=== PATIENT | female | born 1995 | race Caucasian/White ===

== ENCOUNTER → 2016-12-07 | Outpatient (CLI) | payer MEDICAID ==
--- NOTE | 2016-12-07 15:28 | US ---
Examination: Greater than 14 weeks transabdominal ultrasound with color Doppler and M-mode evaluatio n. HISTORY: screening FINDINGS: LMP is 07/20/2016 EVALUATION: Posterior placenta with a breech lie and grade 1. Visually amniotic fluid is withi n normal limits. Three-vessel cord is seen. Ventricles are within normal limits. Nuchal fold thickness is 3 mm. Four chamber heart is noted. Heart rate is 142 beats per minute. BIOMETRY AND GESTATIONAL AGE: Biparietal diameter 6.7 cm. The abdominal circumference measures 14.6 cm. The femoral length is 2.9 cm with head circumference of 17.3 cm. Gestational age is 19 weeks and 5 days. The expected date of delivery is approximately 04/28/2017. Fetus weight is 298 grams. Overall the fetus is within the 21st percentile. Other detail anatomy summarized into PACs sheet after the images. No anatomical anomalies. IMPRESSION: Single active IU with breech fetus. Posterior placenta with grade 1, no placenta previa. N o anomalies are seen. Amniotic fluid appears within normal limits.
== END ==
LOC: MW.US 10:58
PROVIDERS: ATTEND Obstetrics & Gynecology
DX: Z36 Encounter for antenatal screening of mother (principal); Z3A.19 19 weeks gestation of pregnancy
CPT/HCPCS: 76805; 76805-26

== ENCOUNTER → 2016-12-24 | Outpatient (CLI) | payer MEDICAID | LOC: MW.CHOBGYN 11:56 | PROVIDERS: ATTEND Obstetrics & Gynecology | DX: Z34.90 Encounter for supervision of normal pregnancy, unspecified, unspecified trimester (principal) | CPT/HCPCS: 81003 ==

== ENCOUNTER 2017-04-21 05:18 | Inpatient (IN) | payer BC, MEDICAID ==
[2017-04-21] MEDS ORDERED: ceFAZolin 2 GM in Premix Bag 1 BAG IV ONE (06:23)
[2017-04-21] MEDS ORDERED: Sodium Chloride 0.9% 10 ML Syringe FLUSH PRN (06:23)
[2017-04-21] MEDS ORDERED: Sodium Chloride 0.9% 2.5 ML Syringe FLUSH PRN (06:23)
[2017-04-21] MEDS ORDERED: Citric Acid/Sodium Citrate Solution 30 ML Cup PO SCH (06:30)
[2017-04-21] MEDS: Lactated Ringers 1,000 ML IV SCH ×3 (06:39→07:44)
--- NOTE | 2017-04-21 06:39 | PCM.LDHP ---
L&D History of Present Illness - General Date of Service: 04/21/17 Admit Problem/Dx: Patient Status Order with Admit Dx/Problem 04/21/17 06:23 Patient Status [ADT] Routine Admission Diagnosis/Problem Admission Diagnosis/Problem Source of Information: Patient History Limitations: Reports: No Limitations - History of Present Illness Improves with: Reports: None Worsens with: Reports: None Associated Symptoms: Reports: N - Related Data Allergies/Adverse Reactions: Allergies Allergy/AdvReac Type Severity Reaction Status Date / Time aspirin Allergy due to Verified 04/14/17 10:27 bleeding disorder NSAIDS (Non-Steroidal Allergy due to Verified 04/14/17 10:27 Anti-Inflamma bleeding disorder Home Medications: Home Meds Pnv No.95/Ferrous Fum/Folic AC [ Multivitamin Tablet] 1 tab PO DAILY [History] QUEtiapine [SEROquel] 100 mg PO BEDTIME 04/14/17 [History] lamoTRIgine [Lamictal] 200 mg PO DAILY 04/14/17 [History] Past Medical History Gastrointestinal History: Reports: Other (See Below) Other Gastrointestinal History: occasional heartburn with Genitourinary History: Reports: None DIORAMIST History: Reports: Musculoskeletal History: Reports: None Neurological History: Reports: Seizure Other Neuro History: seizure disorder, on lamictal Psychiatric History: Reports: Anxiety, Depression Hematologic History: Reports: Other (See Below) Other Hematologic History: bleeding disorder, HHT (hereditary hemorrhagic telangiectasia) - Past Surgical History Head Surgeries/Procedures: Reports: None Female Surgical History: Reports: Section Musculoskeletal Surgical History: Reports: Other (See Below) Other Musculoskeletal Surgeries/Procedures:: hx of rt hand surgery Social & Family History - Family History HEENT: Reports: Epistaxis Cardiac: Reports: Hypertension Musculoskeletal: Reports: Arthritis Neurological: Reports: CVA, Neuropathy, Diabetic, Speech Problems, TIA Psychiatric: Reports: ADHD, Anxiety, Depression, Panic Attack Endocrine/Metabolic: Reports: Diabetes, type II Other Hematologic Family History: HHT - Tobacco Use Smoking Status *Q: Current Every Day Smoker Years of Tobacco use: 8 Packs/Tins Daily: 0.5 - Recreational Drug Use Drug Use in Last 12 Months: No H&P Review of Systems - Review of Systems: Review Of Systems: See Below General: Reports: No Symptoms HEENT: Reports: No Symptoms Pulmonary: Reports: No Symptoms Cardiovascular: Reports: No Symptoms Gastrointestinal: Reports: No Symptoms Genitourinary: Reports: No Symptoms Musculoskeletal: Reports: No Symptoms Skin: Reports: No Symptoms Psychiatric: Reports: No Symptoms Neurological: Reports: No Symptoms Hematologic/Lymphatic: Reports: No Symptoms Immunologic: Reports: No Symptoms L&D Exam - Exam Exam: See Below - Vital Signs Weight: 72.121 kg - OB Specific Fundal Height In cm: 37 Contraction Intensity: Mild Movement: Active Heart Tones: Present Presentation: Vertex - Ferguson Score Ferguson Score Cervix Position: Posterior Ferguson Score Consistency: Firm Ferguson Score Effacement: 0-30% Ferguson Score Dilation: Closed Ferguson Score 's Station: -3 Ferguson Score Total: 0 - Exam General: Alert, Oriented HEENT: PERRLA, Conjunctiva Clear, EACs Clear, EOMI, Hearing Intact, Mucosa Moist & [place], Nares Patent, Normal Nasal Septum, Posterior Pharynx Clear, TMs Clear Neck: Supple, Trachea Midline Lungs: Clear to Auscultation, Normal Respiratory Effort Cardiovascular: Regular Rate, Regular Rhythm GI/Abdominal Exam: Normal Bowel Sounds, Soft, Non-Tender, No Organomegaly, No Distention, No Abnormal Bruit, No Mass, Pelvis Stable Rectal Exam: Normal Exam, Normal Rectal Tone Genitourinary: Normal external exam, Normal bimanual exam, Normal speculum exam Back Exam: Normal Inspection, Full Range of Motion Extremities: Normal Inspection, Normal Range of Motion, Non-Tender, No Pedal Edema, Normal Capillary Refill Skin: Warm, Dry, Intact Neurological: Cranial Nerves Intact, Reflexes Equal Bilateral Psychiatric: Alert, Normal Affect, Normal Mood Problem List Initiated/Reviewed/Updated: Yes Orders Last 24hrs: Active Orders 24 hr Category Date Time Status Patient Status [ADT] Routine ADT 04/21/17 06:23 Active Non Stress Test [RC] PER UNIT ROUTINE Care 04/21/17 06:23 Active Notify Provider Vital Signs [RC] PRN Care 04/21/17 06:23 Active Procedure Site Prep Instruct [RC] ASDIRECTED Care 04/21/17 06:23 Active Up ad Agata [RC] ASDIRECTED Care 04/21/17 06:23 Active Verify Patient Consent Obtain [RC] ASDIRECTED Care 04/21/17 06:23 Active Vital Signs [RC] PER UNIT ROUTINE Care 04/21/17 06:23 Active CBC W/O DIFF,HEMOGRAM [HEME] Routine Lab 04/21/17 06:23 Ordered TYPE AND SCREEN [BBK] Routine Lab 04/21/17 06:23 Ordered Citric Acid/Sodium Citrate [Bicitra Solution] Med 04/21/17 06:30 Active 30 ml PO .ONCE Lactated Ringers [Ringers, Lactated] 1,000 ml Med 04/21/17 06:30 Active IV .BOLUS Sodium Chloride 0.9% [Saline Flush] Med 04/21/17 06:23 Active 10 ml FLUSH ASDIRECTED PRN Sodium Chloride 0.9% [Saline Flush] Med 04/21/17 06:23 Active 2.5 ml FLUSH ASDIRECTED PRN ceFAZolin [Ancef] 2 gm Med 04/21/17 06:23 Active Premix Bag 1 bag IV ONETIME Peripheral IV Insertion Adult [OM.PC] Routine Oth 04/21/17 06:23 Ordered Schedule Procedure [COMM] Per Unit Routine Oth 04/21/17 06:23 Ordered Resuscitation Status Routine Resus Stat 04/21/17 06:23 Ordered Medication Orders Citric Acid/Sodium Citrate (Bicitra Solution) 30 ml PO .ONCE LYN Cefazolin Sodium/Dextrose 2 gm (/ Premix) 50 mls @ 100 mls/hr IV ONETIME ONE Stop: 04/21/17 06:52 Lactated Ringer's (Ringers, Lactated) 1,000 mls @ 500 mls/hr IV .BOLUS LYN Sodium Chloride (Saline Flush) 10 ml FLUSH ASDIRECTED PRN PRN Reason: Keep Vein Open Sodium Chloride (Saline Flush) 2.5 ml FLUSH ASDIRECTED PRN PRN Reason: Keep Vein Open Assessment/Plan Comment:: Term admitted for elective repeat C/section
[2017-04-21] MEDS ORDERED: Octyl 2-Cyanoacrylate 1 Tube ONE (07:20)
[2017-04-21] MEDS ORDERED: Morphine PF 10 MG/10 ML SDV ONE (07:33)
[2017-04-21] MEDS ORDERED: Oxytocin/Lactated Ringers 30 UNIT/500 ML BAG ONE ×2 (07:35→09:14)
[2017-04-21] MEDS ORDERED: Propofol 200 MG/20 ML SDV ONE (07:49)
--- NOTE | 2017-04-21 07:55 | PCM.PREANE ---
Preanesthetic Assessment - Procedure Proposed Procedure: Repeat - Anesthesia/Transfusion/Family Hx Anesthesia History: Prior Anesthesia Without Reaction Family History of Anesthesia Reaction: No Transfusion History: No Prior Transfusion(s) Additional History: Hereditary bleeding disorder (telangiectasia) - Review of Systems General: No Symptoms Pulmonary: No Symptoms, Other (current everyday smoker) Cardiovascular: No Symptoms Gastrointestinal: Other (GERD) Neurological: Seizure (Hx with daily lamictal medication ) - Physical Assessment NPO Status Date: 04/20/17 NPO Status Time: 23:00 Height: 5 ft 1 in Weight: 170 lb ASA Class: 3 Mental Status: Alert & Oriented x3 Airway Class: Mallampati = 1 Dentition: Reports: Normal Dentition Thyro-Mental Finger Breadths: 3 Mouth Opening Finger Breadths: 3 ROM/Head Extension: Full Lungs: Normal Respiratory Effort Cardiovascular: Regular Rate, Regular Rhythm - Lab Values: Laboratory Last Values WBC 11.97 K/uL (4.0-11.0) H 04/21/17 06:39 RBC 4.04 M/uL (4.30-5.90) L 04/21/17 06:39 Hgb 13.4 g/dL (12.0-16.0) 04/21/17 06:39 Hct 38.2 % (36.0-46.0) 04/21/17 06:39 MCV 94.6 fL (80.0-98.0) 04/21/17 06:39 MCH 33.2 pg (27.0-32.0) H 04/21/17 06:39 MCHC 35.1 g/dL (31.0-37.0) 04/21/17 06:39 RDW Std Deviation 52.2 fl (28.0-62.0) 04/21/17 06:39 RDW Coeff of Twyla 15 % (11.0-15.0) 04/21/17 06:39 Plt Count 237 K/uL (150-400) 04/21/17 06:39 MPV 9.50 fL (7.40-12.00) 04/21/17 06:39 Nucleated RBC % 0.0 /100WBC 04/21/17 06:39 Nucleated RBCs # 0 K/uL 04/21/17 06:39 Blood Type O NEGATIVE 04/21/17 06:39 Antibody Screen NEGATIVE 04/21/17 06:39 - Allergies Allergies/Adverse Reactions: Allergies Allergy/AdvReac Type Severity Reaction Status Date / Time aspirin Allergy due to Verified 04/14/17 10:27 bleeding disorder NSAIDS (Non-Steroidal Allergy due to Verified 04/14/17 10:27 Anti-Inflamma bleeding disorder - Blood Blood Available: No - Anesthesia Plan Pre-Op Medication Ordered: None - Acknowledgements Anesthesia Type Planned: Spinal Pt an Appropriate Candidate for the Planned Anesthesia: Yes Alternatives and Risks of Anesthesia Discussed w Pt/Guardian: Yes Pt/Guardian Understands and Agrees with Anesthesia Plan: Yes PreAnesthesia Questionnaire Gastrointestinal History: Reports: Other (See Below) Other Gastrointestinal History: occasional heartburn with Genitourinary History: Reports: None [employer] 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: Musculoskeletal History: Reports: None Neurological History: Reports: Seizure Other Neuro History: seizure disorder, on lamictal Psychiatric History: Reports: Anxiety, Depression Hematologic History: Reports: Other (See Below) Other Hematologic History: bleeding disorder, HHT (hereditary hemorrhagic telangiectasia) - Past Surgical History Head Surgeries/Procedures: Reports: None Female Surgical History: Reports: Section Musculoskeletal Surgical History: Reports: Other (See Below) Other Musculoskeletal Surgeries/Procedures:: hx of rt hand surgery - SUBSTANCE USE Smoking Status *Q: Current Every Day Smoker Tobacco Use Within Last Twelve Months: Cigarettes Second Hand Smoke Exposure: Yes Recreational Drug Use History: No - HOME MEDS Home Medications: Home Meds Pnv No.95/Ferrous Fum/Folic AC [ Multivitamin Tablet] 1 tab PO DAILY [History] QUEtiapine [SEROquel] 100 mg PO BEDTIME 04/14/17 [History] lamoTRIgine [Lamictal] 200 mg PO DAILY 04/14/17 [History] - CURRENT (IN HOUSE) MEDS Current Meds: Current Medications Citric Acid/Sodium Citrate (Bicitra Solution) 30 ml PO .ONCE LYN Lactated Ringer's (Ringers, Lactated) 1,000 mls @ 500 mls/hr IV .BOLUS LYN Last Admin: 04/21/17 07:44 Dose: 999 mls/hr Sodium Chloride (Saline Flush) 10 ml FLUSH ASDIRECTED PRN PRN Reason: Keep Vein Open Sodium Chloride (Saline Flush) 2.5 ml FLUSH ASDIRECTED PRN PRN Reason: Keep Vein Open Discontinued Medications Cefazolin Sodium/Dextrose 2 gm (/ Premix) 50 mls @ 100 mls/hr IV ONETIME ONE Stop: 04/21/17 06:52 Oxytocin/Lactated Ringer's (Pitocin In Lr 30 Units/500 Ml) Confirm Administered Dose 30 unit in 500 mls @ as directed .ROUTE .STK-MED ONE Stop: 04/21/17 07:36 Morphine Sulfate (Duramorph Pf) Confirm Administered Dose 10 mg .ROUTE .STK-MED ONE Stop: 04/21/17 07:34 Octyl Cyanoacrylate (Dermabond Advance) Confirm Administered Dose 1 applic .ROUTE .STK-MED ONE Stop: 04/21/17 07:21
[2017-04-21] MEDS ORDERED: Midazolam 1 MG/ML 2 ML SDV ONE (08:20)
[2017-04-21] MEDS ORDERED: Ondansetron 4 MG/2 ML SDV ONE (08:41)
[2017-04-21] MEDS ORDERED: Ondansetron 4 MG/2 ML SDV IV PRN (09:07)
[2017-04-21] MEDS ORDERED: diphenhydrAMINE 50 MG/ML SDV IVPUSH PRN (09:07)
[2017-04-21] MEDS ORDERED: Bisacodyl 10 MG Supp RECTAL PRN (09:07)
[2017-04-21] MEDS ORDERED: Lanolin 100% Cream 7 GM Tube TOP PRN (09:07)
[2017-04-21] MEDS ORDERED: Ibuprofen 800 MG Tab PO PRN (09:07)
--- NOTE | 2017-04-21 09:11 | PCM.OPNOTE ---
- General Post-Op/Procedure Note Date of Surgery/Procedure: 04/21/17 Operative Procedure(s): Repeat C/section, term Pre Op Diagnosis: Term Post-Op Diagnosis: Same Anesthesia Technique: Spinal Primary Surgeon: Jem Landaverde Contact Center Team Lead: Faina Cruz Contact Center Team Lead: Berry Bennett EBL in mLs: 700 Complications: None Condition: Good
[2017-04-21] MEDS ORDERED: Lactated Ringers 1,000 ML IV SCH (09:15)
[2017-04-21] MEDS ORDERED: Nalbuphine 10 MG/1 ML Vial IVPUSH PRN (09:19)
[2017-04-21] MEDS ORDERED: Naloxone 0.4 MG/ML Syringe IVPUSH PRN (09:19)
--- NOTE | 2017-04-21 10:21 | OR ---
SURGEON: Jem Landaverde MD DATE OF PROCEDURE: PREOPERATIVE DIAGNOSIS: Term , previous section, admitted for elective repeat section. POSTOPERATIVE DIAGNOSIS: Term , previous section, admitted for elective repeat section. OPERATION PERFORMED: Repeat low transverse section with excision of the old scar. ASSISTANTS: Dr. Bennett and LESLIE Levy. ANESTHESIA: Spinal by Adeline Neil and Dr. Aguirre. ESTIMATED BLOOD LOSS: 700 mL. COMPLICATION: None. FINDINGS: Female fetus, viable. score reported to be 8 and 9. Weight is not available. Normal uterus, tubes, and ovaries. INDICATION FOR SURGERY: This patient is 21, she is para 3-0-0-3. She has previously had two normal spontaneous vaginal deliveries. Her last one was a repeat section. The patient elected to have a repeat section in this . PROCEDURE IN DETAIL: The patient was brought to the OR, properly identified, and after adequate level of spinal anesthesia, with a Cruz catheter, the patient was prepped and draped in sterile fashion as usual. After doing time-out, a low transverse Pfannenstiel skin incision was done excising the old scar, the Jodee's fascia, and rectus fascia were opened in direction of the incision. The two recti muscles were , peritoneal cavity was entered, and bladder flap was raised in the usual manner pushing the bladder away from the lower uterine segment. Low transverse uterine incision was done, extended manually with the hand. Fetus was in a vertex presentation, delivered without any problem, cried immediately. score reported to be 8 and 9. The weight is not available. The placenta was delivered spontaneous, complete, and intact and then repair of the lower uterine segment was done with 2-0 Vicryl continuous interlocking in 2 layers. Reperitonealization done with 3-0 Vicryl continuous. Then the peritoneal cavity was evacuated completely from all blood and blood clots and closed with 3-0 Vicryl continuous. The rectus fascia was closed with #1 PDS, double strand, continuous. The Jodee's fascia with 3-0 Vicryl continuous and the skin closed with monofilament 4-0 subcuticular and Dermabond. Instrument and sponge count was correct. The patient tolerated the procedure well, went to recovery room in stable general condition. CARLOS / MODL /[id number]
[2017-04-21] MEDS: Acetaminophen/oxyCODONE 325-5 MG Tab PO PRN ×3 (10:41→21:26)
[2017-04-21] MEDS: diphenhydrAMINE 50 MG/ML SDV IVPUSH PRN ×2 (12:01→21:26)
[2017-04-21] MEDS: fentaNYL 100 MCG/2 ML SDV IVPUSH PRN ×4 (12:02→20:06)
--- NOTE | 2017-04-21 14:09 | PCM48HPAN ---
Post Anesthesia Note - EVALUATION WITHIN 48HRS OF ANESTHETIC Vital Signs in Normal Range: Yes Patient Participated in Evaluation: Yes Respiratory Function Stable: Yes Airway Patent: Yes Cardiovascular Function Stable: Yes Hydration Status Stable: Yes Pain Control Satisfactory: Yes Nausea and Vomiting Control Satisfactory: Yes Mental Status Recovered: Yes
[2017-04-21] MEDS: Docusate Sodium 100 MG Cap PO SCH (21:27)
[2017-04-22] MEDS: fentaNYL 100 MCG/2 ML SDV IVPUSH PRN ×2 (00:48→05:47)
[2017-04-22] MEDS: Acetaminophen/oxyCODONE 325-5 MG Tab PO PRN ×6 (03:19→19:42)
[2017-04-22] MEDS: Docusate Sodium 100 MG Cap PO SCH ×2 (08:11→20:56)
[2017-04-22] MEDS: lamoTRIgine 100 MG Tab PO SCH ×2 (09:28→20:05)
--- NOTE | 2017-04-22 10:46 | PCM.PNPP ---
- General Info Date of Service: 04/22/17 Functional Status: Reports: Pain Controlled - Review of Systems General: Reports: No Symptoms HEENT: Reports: No Symptoms Pulmonary: Reports: No Symptoms Cardiovascular: Reports: No Symptoms Gastrointestinal: Reports: No Symptoms Genitourinary: Reports: No Symptoms Musculoskeletal: Reports: No Symptoms Skin: Reports: No Symptoms Neurological: Reports: No Symptoms Psychiatric: Reports: No Symptoms - General Info Date of Service: 04/22/17 - Patient Data Vital Signs - Most Recent: Last Vital Signs Temp 36.3 C 04/22/17 08:00 Pulse 84 04/22/17 08:00 Resp 17 04/22/17 09:07 BP 110/61 04/22/17 08:00 Pulse Ox 96 04/22/17 09:07 Weight - Most Recent: 77.111 kg I&O - Last 24 Hours: Intake & Output 04/21/17 04/22/17 04/22/17 22:59 06:59 14:59 Intake Total 924 Output Total 600 2125 150 Balance 324 -2125 -150 Lab Results - Last 24 Hours: Laboratory Results - last 24 hr 04/22/17 Range/Units 05:38 Hgb 12.0 (12.0-16.0) g/dL Hct 33.9 L (36.0-46.0) % Med Orders - Current: Current Medications Bisacodyl (Dulcolax) 10 mg RECTAL .ONCE PRN PRN Reason: Constipation Citric Acid/Sodium Citrate (Bicitra Solution) 30 ml PO .ONCE LYN Last Admin: 04/21/17 07:51 Dose: 30 ml Diphenhydramine HCl (Benadryl) 25 mg IVPUSH Q6H PRN PRN Reason: Itching or Nausea Docusate Sodium (Colace) 100 mg PO BID LYN Last Admin: 04/22/17 08:11 Dose: 100 mg Emollient Ointment (Lansinoh Hpa) 0 gm TOP ASDIRECTED PRN PRN Reason: Sore Nipples Fentanyl (Sublimaze) 25 - 50 mcg IVPUSH Q30M PRN PRN Reason: Pain Last Admin: 04/22/17 05:47 Dose: 25 mcg Lactated Ringer's (Ringers, Lactated) 1,000 mls @ 500 mls/hr IV .BOLUS LYN Last Admin: 04/21/17 07:44 Dose: 999 mls/hr Lactated Ringer's (Ringers, Lactated) 1,000 mls @ 125 mls/hr IV ASDIRECTED [facility] Last Admin: 04/21/17 10:44 Dose: 125 mls/hr Ibuprofen (Motrin) 800 mg PO Q8H PRN PRN Reason: mild pain or fever Lamotrigine (Lamotrigine) 200 mg PO DAILY [facility] Last Admin: 04/22/17 09:28 Dose: 200 mg Ondansetron HCl (Zofran) 4 mg IV Q4H PRN PRN Reason: Nausea/Vomiting Oxycodone/Acetaminophen (Percocet 325-5 Mg) 1 tab PO Q4H PRN PRN Reason: Pain (moderate 4-6) Oxycodone/Acetaminophen (Percocet 325-5 Mg) 2 tab PO Q4H PRN PRN Reason: Pain (moderate 4-6) Oxycodone/Acetaminophen (Percocet 325-5 Mg) 1 - 2 tab PO Q6H PRN PRN Reason: Pain Stop: 04/23/17 14:00 Last Admin: 04/22/17 08:12 Dose: 2 tab Sodium Chloride (Saline Flush) 10 ml FLUSH ASDIRECTED PRN PRN Reason: Keep Vein Open Sodium Chloride (Saline Flush) 2.5 ml FLUSH ASDIRECTED PRN PRN Reason: Keep Vein Open Discontinued Medications Diphenhydramine HCl (Benadryl) 25 mg IVPUSH Q4H PRN PRN Reason: Itching Stop: 04/22/17 09:19 Last Admin: 04/21/17 21:26 Dose: 25 mg Cefazolin Sodium/Dextrose 2 gm (/ Premix) 50 mls @ 100 mls/hr IV ONETIME ONE Stop: 04/21/17 06:52 Last Admin: 04/21/17 15:16 Dose: Not Given Oxytocin/Lactated Ringer's (Pitocin In Lr 30 Units/500 Ml) Confirm Administered Dose 30 unit in 500 mls @ as directed .ROUTE .STK-MED ONE Stop: 04/21/17 07:36 Oxytocin/Lactated Ringer's (Pitocin In Lr 30 Units/500 Ml) Confirm Administered Dose 30 unit in 500 mls @ as directed .ROUTE .STK-MED ONE Stop: 04/21/17 09:15 Ketorolac Tromethamine (Toradol) 30 mg IVPUSH Q6H LYN Stop: 04/22/17 09:16 Lamotrigine (Lamotrigine) 200 mg PO BID LYN Midazolam HCl (Versed 1 Mg/Ml) Confirm Administered Dose 2 mg .ROUTE .STK-MED ONE Stop: 04/21/17 08:21 Morphine Sulfate (Duramorph Pf) Confirm Administered Dose 10 mg .ROUTE .STK-MED ONE Stop: 04/21/17 07:34 Nalbuphine HCl (Nubain) 5 mg IVPUSH Q3H PRN PRN Reason: Pruritis Stop: 04/22/17 09:20 Last Admin: 04/21/17 18:11 Dose: 5 mg Naloxone HCl (Narcan) 0.1 mg IVPUSH ONETIME PRN PRN Reason: Other Stop: 04/22/17 09:19 Octyl Cyanoacrylate (Dermabond Advance) Confirm Administered Dose 1 applic .ROUTE .STK-MED ONE Stop: 04/21/17 07:21 Ondansetron HCl (Zofran) Confirm Administered Dose 4 mg .ROUTE .STK-MED ONE Stop: 04/21/17 08:42 Propofol (Diprivan 20 Ml) Confirm Administered Dose 200 mg .ROUTE .STK-MED ONE Stop: 04/21/17 07:50 - Infant Interaction Infant Disposition, : [place] in Room with Family Infant Interaction: Holding Infant Feeding: Attempted ; Nursed Fair/Poor Support Person: - Recovery Exam Fundal Tone: Firm Fundal Level: 1 Fingerbreadths Below Umbilicus Fundal Placement: Midline Lochia Amount: Scant Lochia Color: Rubra/Red Perineum Description: Intact, Minimal Bruising/Swelling Episiotomy/Laceration: None Bladder Status: Voiding Urinary Elimination: Voided - Exam General: Alert, Oriented HEENT: Pupils Equal Neck: Supple Lungs: Clear to Auscultation, Normal Respiratory Effort Cardiovascular: Regular Rate, Regular Rhythm GI/Abdominal Exam: Normal Bowel Sounds, Soft, Non-Tender, No Organomegaly, No Distention, No Abnormal Bruit, No Mass, Pelvis Stable Extremities: Normal Inspection, Normal Range of Motion, Non-Tender, No Pedal Edema, Normal Capillary Refill Skin: Warm, Dry, Intact Wound/Incisions: Healing Well Neurological: No New Focal Deficit Psy/Mental Status: Alert, Normal Affect, Normal Mood - Problem List Review Problem List Initiated/Reviewed/Updated: Yes - My Orders Last 24 Hours: My Active Orders 04/21/17 21:00 Docusate Sodium [Colace] 100 mg PO BID 04/22/17 09:05 lamoTRIgine 200 mg PO DAILY - Assessment Assessment:: Status post section postoperative day #1 patient is doing well - Plan Plan:: Term admitted for elective repeat C/section
[2017-04-22] MEDS ORDERED: Nicotine 14 MG/24 Hr Patch TRDERM ONE (13:38)
[2017-04-22] MEDS: Ketorolac 30 MG/ML SDV IVPUSH SCH (20:03)
[2017-04-23] MEDS: Acetaminophen/oxyCODONE 325-5 MG Tab PO PRN ×4 (00:11→11:37)
[2017-04-23 08:20] VITALS: BP 126/74
[2017-04-23] MEDS: Docusate Sodium 100 MG Cap PO SCH (08:58)
[2017-04-23] MEDS: lamoTRIgine 100 MG Tab PO SCH (10:54)
--- NOTE | 2017-04-23 10:54 | PCM.DCSUM1 ---
Discharge Summary - Discharge Data Discharge Date: 04/23/17 Discharge Disposition: Home, Self-Care 01 Condition: Good - Patient Summary/Data Operative Procedure(s) Performed: Repeat C/section, term - Patient Instructions Diet: Usual Diet as Tolerated Activity: As Tolerated Showering/Bathing: May Shower Wound/Incision Care: Keep Operative Site/Wound Site Clean and Dry Notify Provider of: Fever, Increased Pain, Nausea and/or Vomiting - Discharge Plan Home Medications: Home Meds Pnv No.95/Ferrous Fum/Folic AC [ Multivitamin Tablet] 1 tab PO DAILY [History] QUEtiapine [SEROquel] 100 mg PO BEDTIME 04/14/17 [History] lamoTRIgine [Lamictal] 200 mg PO DAILY 04/14/17 [History] Patient Handouts: Delivery, Care After Referrals: [facility] [Outside] Jem Landaverde MD [Physician] - ( week- April 27 @ 10:45am w/ Dr. Landaverde week- June 01 @ 1:30pm w/ Dr. Landaverde) - General Info Date of Service: 04/23/17 Functional Status: Reports: Pain Controlled - Review of Systems General: Reports: No Symptoms HEENT: Reports: No Symptoms Pulmonary: Reports: No Symptoms Cardiovascular: Reports: No Symptoms Gastrointestinal: Reports: No Symptoms Genitourinary: Reports: No Symptoms Musculoskeletal: Reports: No Symptoms Skin: Reports: No Symptoms Neurological: Reports: No Symptoms Psychiatric: Reports: No Symptoms - Patient Data Vitals - Most Recent: Last Vital Signs Temp 37.0 C 04/23/17 08:00 Pulse 86 04/23/17 08:00 Resp 12 04/23/17 08:00 BP 126/74 04/23/17 08:00 Pulse Ox 93 L 04/23/17 08:00 Weight - Most Recent: 77.111 kg Med Orders - Current: Current Medications Bisacodyl (Dulcolax) 10 mg RECTAL .ONCE PRN PRN Reason: Constipation Citric Acid/Sodium Citrate (Bicitra Solution) 30 ml PO .ONCE LYN Last Admin: 04/21/17 07:51 Dose: 30 ml Diphenhydramine HCl (Benadryl) 25 mg IVPUSH Q6H PRN PRN Reason: Itching or Nausea Docusate Sodium (Colace) 100 mg PO BID [facility] Last Admin: 04/23/17 08:58 Dose: 100 mg Emollient Ointment (Lansinoh Hpa) 0 gm TOP ASDIRECTED PRN PRN Reason: Sore Nipples Fentanyl (Sublimaze) 25 - 50 mcg IVPUSH Q30M PRN PRN Reason: Pain Last Admin: 04/22/17 05:47 Dose: 25 mcg Lactated Ringer's (Ringers, Lactated) 1,000 mls @ 500 mls/hr IV .BOLUS [facility] Last Admin: 04/21/17 07:44 Dose: 999 mls/hr Lactated Ringer's (Ringers, Lactated) 1,000 mls @ 125 mls/hr IV ASDIRECTED [facility] Last Admin: 04/21/17 10:44 Dose: 125 mls/hr Ibuprofen (Motrin) 800 mg PO Q8H PRN PRN Reason: mild pain or fever Lamotrigine (Lamotrigine) 200 mg PO DAILY [facility] Last Admin: 04/22/17 09:28 Dose: 200 mg Ondansetron HCl (Zofran) 4 mg IV Q4H PRN PRN Reason: Nausea/Vomiting Oxycodone/Acetaminophen (Percocet 325-5 Mg) 1 tab PO Q4H PRN PRN Reason: Pain (moderate 4-6) Last Admin: 04/23/17 08:59 Dose: 1 tab Oxycodone/Acetaminophen (Percocet 325-5 Mg) 2 tab PO Q4H PRN PRN Reason: Pain (moderate 4-6) Last Admin: 04/23/17 00:11 Dose: 2 tab Oxycodone/Acetaminophen (Percocet 325-5 Mg) 1 - 2 tab PO Q6H PRN PRN Reason: Pain Stop: 04/23/17 14:00 Last Admin: 04/22/17 08:12 Dose: 2 tab Sodium Chloride (Saline Flush) 10 ml FLUSH ASDIRECTED PRN PRN Reason: Keep Vein Open Sodium Chloride (Saline Flush) 2.5 ml FLUSH ASDIRECTED PRN PRN Reason: Keep Vein Open Discontinued Medications Diphenhydramine HCl (Benadryl) 25 mg IVPUSH Q4H PRN PRN Reason: Itching Stop: 04/22/17 09:19 Last Admin: 04/21/17 21:26 Dose: 25 mg Cefazolin Sodium/Dextrose 2 gm (/ Premix) 50 mls @ 100 mls/hr IV ONETIME ONE Stop: 04/21/17 06:52 Last Admin: 04/21/17 15:16 Dose: Not Given Oxytocin/Lactated Ringer's (Pitocin In Lr 30 Units/500 Ml) Confirm Administered Dose 30 unit in 500 mls @ as directed .ROUTE .STK-MED ONE Stop: 04/21/17 07:36 Oxytocin/Lactated Ringer's (Pitocin In Lr 30 Units/500 Ml) Confirm Administered Dose 30 unit in 500 mls @ as directed .ROUTE .STK-MED ONE Stop: 04/21/17 09:15 Ketorolac Tromethamine (Toradol) 30 mg IVPUSH Q6H [facility] Stop: 04/22/17 09:16 Last Admin: 04/22/17 20:03 Dose: Not Given Lamotrigine (Lamotrigine) 200 mg PO BID [facility] Last Admin: 04/22/17 20:05 Dose: Not Given Midazolam HCl (Versed 1 Mg/Ml) Confirm Administered Dose 2 mg .ROUTE .STK-MED ONE Stop: 04/21/17 08:21 Morphine Sulfate (Duramorph Pf) Confirm Administered Dose 10 mg .ROUTE .STK-MED ONE Stop: 04/21/17 07:34 Nalbuphine HCl (Nubain) 5 mg IVPUSH Q3H PRN PRN Reason: Pruritis Stop: 04/22/17 09:20 Last Admin: 04/21/17 18:11 Dose: 5 mg Naloxone HCl (Narcan) 0.1 mg IVPUSH ONETIME PRN PRN Reason: Other Stop: 04/22/17 09:19 Nicotine (Habitrol) 14 mg TRDERM ONETIME ONE Stop: 04/22/17 13:39 Last Admin: 04/22/17 13:58 Dose: 14 mg Octyl Cyanoacrylate (Dermabond Advance) Confirm Administered Dose 1 applic .ROUTE .STK-MED ONE Stop: 04/21/17 07:21 Ondansetron HCl (Zofran) Confirm Administered Dose 4 mg .ROUTE .STK-MED ONE Stop: 04/21/17 08:42 Propofol (Diprivan 20 Ml) Confirm Administered Dose 200 mg .ROUTE .STK-Optimitive ONE Stop: 04/21/17 07:50 - Exam General: Reports: Alert, Oriented HEENT: Reports: Pupils Equal, Pupils Reactive, EOMI, Mucous Membr. Moist/[place]: Reports: Supple Lungs: Reports: Clear to Auscultation, Normal Respiratory Effort Cardiovascular: Reports: Regular Rate, Regular Rhythm GI/Abdominal Exam: Normal Bowel Sounds, Soft, Non-Tender, No Organomegaly, No Distention, No Abnormal Bruit, No Mass, Pelvis Stable (Female) Exam: Normal External Exam, Normal Speculum Exam, Normal Bimanual Exam Rectal (Female) Exam: Normal Exam, Normal Rectal Tone Back Exam: Reports: Normal Inspection, Full Range of Motion Extremities: Normal Inspection, Normal Range of Motion, Non-Tender, No Pedal Edema, Normal Capillary Refill Skin: Reports: Warm, Dry, Intact Wound/Incisions: Reports: Healing Well Neurological: Reports: No New Focal Deficit Psy/Mental Status: Reports: Alert, Normal Affect, Normal Mood *Q Meaningful Use (DIS) - VTE *Q VTE Criteria *Q: - Stroke *Q Stroke Criteria *Q: - AMI *Q AMI Criteria *Q:
== END 2017-04-23 11:40 | disposition home or self-care (01) | DRG 540 ==
LOC: MW.OB 05:18
PROVIDERS: ADMIT Obstetrics & Gynecology; ATTEND Obstetrics & Gynecology
PROC: 10D00Z1 Extraction of Products of Conception, Low, Open Approach (ICD-10-PCS; principal; 2017-04-21)
PROC: 3E0R3BZ Introduction of Anesthetic Agent into Spinal Canal, Percutaneous Approach (ICD-10-PCS; 2017-04-21)
DX: O34.211 Maternal care for low transverse scar from previous cesarean delivery (principal); O99.334 Smoking (tobacco) complicating childbirth; F17.210 Nicotine dependence, cigarettes, uncomplicated; G40.909 Epilepsy, unspecified, not intractable, without status epilepticus; I78.0 Hereditary hemorrhagic telangiectasia; Z3A.33 33 weeks gestation of pregnancy; Z37.0 Single live birth; Z88.8 Allergy status to other drugs, medicaments and biological substances
CPT/HCPCS: 01961; 36415; 85014; 85018; 85027; 86850; 86900; 86901; 86920; 86921; 86922; A9270-GY; J1200; J2250; J2270; J2300; J2405; J2704; J3010; J7120